=== PATIENT | male | born 1990 | race Two or more races ===

== ENCOUNTER 2016-08-14 18:31 | Emergency (ER) | payer SELFPAY ==
[2016-08-14 19:34] LABS: BASO % 0.2 % (0-2); EOS % 0.7 % (0-7); HCT-HEMATOCRIT 42.6 % (36.0-53.5); HGB-HEMOGLOBIN 15.2 gm/dl (13.5-17.0); IMMATURE GRANULOCYTES ABSOLUTE 0.02 tho/cmm (0-0.03); IMMATURE GRANULOCYTES PERCENT 0.3 % (0-0.3); LYMPH % 30.7 % (20-45); LYMPH ABSOLUTE COUNT 1.8 tho/cmm (0.8-4.5); MCH (MEAN CORPUSCULAR HGB) 28.6 pg (28.0-32.0); MCHC MEAN CORPUSCULAR HGB CONC 35.7 % (32.0-36.0); MCV (MEAN CELL VOLUME) 80.2 fl (82.0-96.0); MEAN PLATELET VOLUME 11.6 cmc (9.4-12.4); MONO % 7.3 % (0-12); MONOCYTE ABSOLUTE COUNT 0.4 tho/cmm (0.0-1.2); NEUTROPHIL ABSOLUTE COUNT 3.6 tho/cmm (1.6-8.0); NEUTROPHIL-AUTOMATED 3.6 tho/cmm (1.6-8.0); NEUTROPHILS % 60.8 % (40-80); PLATELET COUNT 183 tho/cmm (150-450); RED BLOOD COUNT 5.31 mil/cmm (4.40-5.70); RED CELL DISTRIBUTION WIDTH 12.6 % (12.4-16.4); WHITE BLOOD COUNT 5.9 tho/cmm (4.0-10.0)
[2016-08-14 19:50] LABS: ALB/GLOB RATIO 1.4 (0.8-2.0); ALBUMIN 4.4 g/dl (3.5-5.0); ALKALINE PHOSPHATASE 53 U/L (33-138); ALT/SGPT 12 U/L (12-78); ANION GAP 9 mmol/L (0-20); AST/SGOT 8 U/L (10-40); BILIRUBIN,TOTAL 0.5 mg/dl (0.0-1.5); BLOOD UREA NITROGEN 15 mg/dl (6-24); CALCIUM 9.2 mg/dl (8.5-10.5); CARBON DIOXIDE-VENOUS 32 mmol/L (22-32); CHLORIDE 104 mmol/l (96-110); CREATININE 0.87 mg/dl (0.60-1.30); GLUCOSE 137 mg/dL (70-110); LIPASE 194 U/L (73-393); SODIUM 141 mmol/L (135-145); TRIGLYCERIDES 155 mg/dl (<149); eGFR VALUE FOR BLACK >60 mL/Min
[2016-08-14] MEDS ORDERED: NO HOME MEDICATION XX (20:04)
[2016-08-14 20:18] LABS: URINE BILIRUBIN NEGATIVE (NEG); URINE BLOOD NEGATIVE (NEG); URINE GLUCOSE (UA) NEGATIVE (NEG); URINE KETONE NEGATIVE (NEG); URINE LEUKOCYTE ESTERASE POSITIVE (NEG); URINE NITRITE NEGATIVE (NEG)
[2016-08-14 20:20] LABS: URINE APPEARANCE HAZY; URINE COLOR DARK YELLOW; URINE SPECIFIC GRAVITY 1.024 (1.003-1.030)
[2016-08-14 20:29] LABS: URINE EPITHELIAL CELLS RARE /[HPF] (0-10); URINE MUCUS 1+; URINE PROT SULFOSALICYLIC ACID TRACE (NEG); URINE RBC 0 /[HPF] (0-5); URINE WBC RARE /[HPF] (0-5)
[2017-02-08] MEDS ORDERED: ROBAXIN-750750 M1 PO (12:27)
== END 2016-08-14 21:08 ==
LOC: EDMED 18:31
PROVIDERS: Emergency Medicine
DX: K59.00 Constipation, unspecified (principal)